=== PATIENT | female | born 1980 | race African-American/Black ===

== ENCOUNTER → 2017-04-09 | Outpatient (CLI) | payer MEDICARE ==
[2017-04-09 11:40] LABS: HEMATOCRIT 35.3 % (36.0-47.0); HEMOGLOBIN 12.1 g/dL (12.0-15.5); MEAN CORPUSCULAR HEMOGLOBIN 27.2 pg (27.0-33.4); MEAN CORPUSCULAR HGB CONC 34.4 g/dL (32.0-36.0); MEAN CORPUSCULAR VOLUME 79 fl (80-97); RED BLOOD COUNT 4.45 10^6/uL (3.72-5.28); RED CELL DISTRIBUTION WIDTH 17.9 % (11.5-14.0)
[2017-04-09 11:40] LABS: APPEARANCE,URINE CLEAR; BILIRUBIN,URINE NEGATIVE (NEGATIVE); GLUCOSE, URINE NEGATIVE (NEGATIVE); KETONES,URINE NEGATIVE (NEGATIVE); LEUKOCYTE ESTERASE,URINE NEGATIVE (NEGATIVE); NITRITE,URINE NEGATIVE (NEGATIVE); PROTEIN,URINE NEGATIVE (NEGATIVE); URINE SPECIFIC GRAVITY 1.015; UROBILINOGEN,URINE NEGATIVE mg/dL (<2.0)
[2017-04-09 12:06] LABS: ALANINE AMINOTRANSFERASE 25 U/L (9-52); ALBUMIN 4.5 g/dL (3.5-5.0); ALKALINE PHOSPHATASE 60 U/L (38-126); ANION GAP 12 (5-19); ASPARTATE AMINO TRANSFERASE 18 U/L (14-36); BILIRUBIN,DIRECT 0.3 mg/dL (0.0-0.4); BILIRUBIN,TOTAL 0.4 mg/dL (0.2-1.3); BLOOD UREA NITROGEN 10 mg/dL (7-20); CALCIUM 9.5 mg/dL (8.4-10.2); CARBON DIOXIDE 25 mmol/L (22-30); CHLORIDE 104 mmol/L (98-107); CREATINE KINASE 99 U/L (30-135); CREATININE RESULT 0.63 mg/dL (0.52-1.25); GLUCOSE 107 mg/dL (75-110); POTASSIUM 4.7 mmol/L (3.6-5.0); SODIUM 140.5 mmol/L (137-145); TOTAL PROTEIN 7.8 g/dL (6.3-8.2)
[2017-04-09 12:09] LABS: BAND NEUTROPHILS % (MANUAL) 2 % (3-5); BASOPHILS % (MANUAL) 0 % (0-2); EOSINOPHILS % (MANUAL) 0 % (0-6); LYMPHOCYTES % (MANUAL) 3 % (13-45); TOTAL CELLS COUNTED 100
[2017-04-09 12:13] LABS: C-REACTIVE PROTEIN < 5.0 mg/L (<10.0)
[2017-04-09 12:15] LABS: ANISOCYTOSIS 1+; HYPOCHROMASIA 1+
[2017-04-09 12:18] LABS: PLATELET CLUMPS PRESENT; TOXIC GRANULATION SLIGHT
[2017-04-09 12:22] LABS: ERYTHROCYTE SEDIMENTATION RATE 18 mm/hr (0-20)
[2017-04-10 06:39] LABS: COMPLEMENT C4 20 mg/dL (14-44)
[2017-04-10 07:26] LABS: COMPLEMENT C3 108 mg/dL (82-167)
[2017-04-10 08:23] LABS: COMPLEMENT TOTAL (CH50) >60 U/mL (42-60)
[2017-04-10 13:56] LABS: DNA DOUBLE STRAND ANTIBODY 7 IU/mL (0-9)
== END ==
LOC: OD 09:46
PROVIDERS: ATTEND Internal Medicine Rheumatology
DX: M32.10 Systemic lupus erythematosus, organ or system involvement unspecified (principal); M06.4 Inflammatory polyarthropathy; M25.50 Pain in unspecified joint; M79.1 Myalgia; G89.4 Chronic pain syndrome; Z79.899 Other long term (current) drug therapy
CPT/HCPCS: 36415; 80053; 81001; 82550; 85025; 85652; 86140; 86160; 86162; 86225

== ENCOUNTER 2018-02-16 17:14 | Emergency (ER) | payer MEDICARE ==
[2018-02-16] MEDS ORDERED: ONDANSETRON 4 MG TAB.RAPDIS PO ONE (18:48)
--- NOTE | 2018-02-16 18:48 | ER Document Report ---
ED Medical Screen (RME) - General Chief Complaint: Nausea/Vomiting/Diarrhea Stated Complaint: BACK/LEG/ABDOMINAL PAIN, VOMITING Time Seen by Provider: 02/16/18 18:36 Notes: RAPID MEDICAL EVALUATION DISCLOSURE I have seen this patient as part of a Rapid Medical Evaluation and, if applicable, placed any initially appropriate orders. The patient will be seen and fully evaluated, including a full history and physical exam, by a provider ( in Main ED or Fast Track) when a room becomes available. 37-year-old female here with multiple complaints: 1) complains of "all over chest pain" nausea vomiting diarrhea abdominal cramping that started early this morning. The chest pain is not worse with exertion or anything in particular. He does not have any shortness of breath diaphoresis lightheadedness. She has 2 known sick contacts with similar vomiting and diarrhea illnesses. Has not tried anything for the symptoms. 2) complains of chronic low back pain ongoing for many months now. Has the symptoms daily. Progressively worsening. She is down her right leg. Denies numbness tingling weakness incontinence retention. Has not tried anything for these symptoms. EXAM CTAB RRR Mild lower quadrant TTP Minimal bilateral paraspinal lumbar muscle TTP TRAVEL OUTSIDE OF THE [place] IN LAST 30 DAYS: No - Related Data Allergies/Adverse Reactions: hydroxychloroquine sulfate [From Plaquenil] Allergy (Unknown, Verified 02/16/18 18:25) tramadol [Tramadol] Allergy (Unknown, Verified 02/16/18 18:25) Past Medical History - Social History Chew tobacco use (# tins/day): No Frequency of alcohol use: Occasional Drug Abuse: None Renal/ Medical History: Denies: Hx Peritoneal Dialysis Past Surgical History: Reports: Hx Gynecologic Surgery - Immunizations Hx Diphtheria, Pertussis, Tetanus Vaccination: Yes Physical Exam - Vital signs Vitals: Temp Pulse Resp BP Pulse Ox 99.0 F 99 16 111/61 96 02/16/18 17:32 02/16/18 17:32 02/16/18 17:32 02/16/18 17:32 02/16/18 17:32 Course - Vital Signs Vital signs: Temp Pulse Resp BP Pulse Ox 99.0 F 99 16 111/61 96 02/16/18 17:32 02/16/18 17:32 02/16/18 17:32 02/16/18 17:32 02/16/18 17:32 Doctor's Discharge - Discharge Referrals: ML RODRIGUES MD [Primary Care Provider] - Follow up as needed
[2018-02-16 19:30] LABS: HEMOGLOBIN 12.4 g/dL (12.0-15.5); MEAN CORPUSCULAR HEMOGLOBIN 27.5 pg (27.0-33.4); MEAN CORPUSCULAR HGB CONC 34.4 g/dL (32.0-36.0); MEAN CORPUSCULAR VOLUME 80 fl (80-97); PLATELET COUNT 398 10^3/uL (150-450); RED BLOOD COUNT 4.51 10^6/uL (3.72-5.28); RED CELL DISTRIBUTION WIDTH 14.7 % (11.5-14.0); WHITE BLOOD COUNT 7.1 10^3/uL (4.0-10.5)
[2018-02-16 19:39] LABS: APPEARANCE,URINE CLEAR; BILIRUBIN,URINE NEGATIVE (NEGATIVE); COLOR,URINE AMBER; GLUCOSE, URINE NEGATIVE (NEGATIVE); KETONES,URINE TRACE mg/dL (NEGATIVE); LEUKOCYTE ESTERASE,URINE NEGATIVE (NEGATIVE); NITRITE,URINE NEGATIVE (NEGATIVE); PROTEIN,URINE NEGATIVE (NEGATIVE); URINE SPECIFIC GRAVITY 1.024
[2018-02-16 19:47] LABS: ALANINE AMINOTRANSFERASE 16 U/L (9-52); ALBUMIN 4.4 g/dL (3.5-5.0); ALKALINE PHOSPHATASE 66 U/L (38-126); ANION GAP 10 (5-19); ASPARTATE AMINO TRANSFERASE 22 U/L (14-36); BILIRUBIN,DIRECT 0.3 mg/dL (0.0-0.4); BILIRUBIN,TOTAL 0.5 mg/dL (0.2-1.3); BLOOD UREA NITROGEN 7 mg/dL (7-20); CALCIUM 9.6 mg/dL (8.4-10.2); CARBON DIOXIDE 27 mmol/L (22-30); CHLORIDE 104 mmol/L (98-107); GLUCOSE 74 mg/dL (75-110); LIPASE 50.9 U/L (23-300); POTASSIUM 4.9 mmol/L (3.6-5.0); SODIUM 140.8 mmol/L (137-145); TOTAL PROTEIN 8.2 g/dL (6.3-8.2)
[2018-02-16 19:49] LABS: ABSOLUTE LYMPHOCYTES# (MANUAL) 0.4 10^3/uL (0.5-4.7); ABSOLUTE MONOCYTES # (MANUAL) 0.2 10^3/uL (0.1-1.4); ABSOLUTE NEUTROPHILS# (MANUAL) 6.5 10^3/uL (1.7-8.2); BASOPHILS % (MANUAL) 0 % (0-2); EOSINOPHILS % (MANUAL) 1 % (0-6); LYMPHOCYTES % (MANUAL) 5 % (13-45); MONOCYTES % (MANUAL) 3 % (3-13); SEGMENTED NEUTROPHILS % (MAN) 91 % (42-78); TOTAL CELLS COUNTED 100
[2018-02-16 19:51] LABS: ANISOCYTOSIS SLIGHT; PLATELET COMMENT ADEQUATE; TOXIC GRANULATION SLIGHT
[2018-02-16] MEDS ORDERED: OXYCODONE-ACETAMINOPHEN 5-325 MG TABLET PO ONE (20:09)
--- NOTE | 2018-02-16 20:11 | ER Document Report ---
ED General - General Chief Complaint: Nausea/Vomiting/Diarrhea Stated Complaint: BACK/LEG/ABDOMINAL PAIN, VOMITING Time Seen by Provider: 02/16/18 18:36 Notes: Patient is a 37-year-old female with a history of lupus that comes to the emergency department for chief complaint of vomiting, diarrhea, pain in her mid to lower abdomen, pain in her back, and a few instances of sharp pain in her chest. She has vomited approximately 6 times, had 4 episodes of loose stools. She has had multiple sick contacts with similar symptoms. She denies shortness of breath, fever, dysuria. She states she thinks she saw a few flecks of blood in her vomit after she had vomited multiple times already. No hematochezia. Not on a blood thinner. She is on Imuran and prednisone for lupus. TRAVEL OUTSIDE OF THE [place] IN LAST 30 DAYS: No - Related Data Allergies/Adverse Reactions: hydroxychloroquine sulfate [From Plaquenil] Allergy (Unknown, Verified 02/16/18 18:25) tramadol [Tramadol] Allergy (Unknown, Verified 02/16/18 18:25) Past Medical History - Social History Smoking Status: Current Every Day Smoker Chew tobacco use (# tins/day): No Frequency of alcohol use: Occasional Drug Abuse: None Family History: Reviewed & Not Pertinent Patient has suicidal ideation: No Patient has homicidal ideation: No Renal/ Medical History: Denies: Hx Peritoneal Dialysis Past Surgical History: Reports: Hx Gynecologic Surgery - Immunizations Hx Diphtheria, Pertussis, Tetanus Vaccination: Yes Review of Systems - Review of Systems Constitutional: No symptoms reported EENT: No symptoms reported Cardiovascular: See HPI Respiratory: No symptoms reported Gastrointestinal: See HPI Genitourinary: No symptoms reported Female Genitourinary: No symptoms reported Musculoskeletal: No symptoms reported Skin: No symptoms reported Hematologic/Lymphatic: No symptoms reported Neurological/Psychological: No symptoms reported Physical Exam - Vital signs Vitals: Temp Pulse Resp BP Pulse Ox 99.0 F 99 16 111/61 96 02/16/18 17:32 02/16/18 17:32 02/16/18 17:32 02/16/18 17:32 02/16/18 17:32 - Notes Notes: GENERAL: Alert, interacts well. No acute distress. HEAD: Normocephalic, atraumatic. EYES: Pupils equal, round, and reactive to light. Extraocular movements intact. ENT: Oral mucosa moist, tongue midline. Unremarkable oral pharyngeal exam. NECK: Full range of motion. Supple. Trachea midline. LUNGS: Clear to auscultation bilaterally, no wheezes, rales, or rhonchi. No respiratory distress. HEART: Regular rate and rhythm. No murmur ABDOMEN: Soft, non-tender. Non-distended. Bowel sounds present in all 4 quadrants. EXTREMITIES: Moves all 4 extremities spontaneously. No edema, normal radial and dorsalis pedis pulses bilaterally. No cyanosis. BACK: no cervical, thoracic, lumbar midline tenderness. No saddle anesthesia, normal distal neurovascular exam. NEUROLOGICAL: Alert and oriented x3. Normal speech. [cranial nerves II through XII grossly intact]. PSYCH: Normal affect, normal mood. SKIN: Warm, dry, normal turgor. No rashes or lesions noted. Course - Re-evaluation Re-evalutation: Vague atypical chest pain reported, EKG unremarkable, chest x-ray unremarkable. No current chest pain. Very low suspicion of ACS. No tachycardia or shortness of breath. Low suspicion of PE. Patient does not smoke, she is not on oral contraceptives. Patient's abdomen is soft and benign. Patient is smiling and well-appearing, states she feels good now. Patient was given nausea medication, afterwards she tolerated p.o. without any difficulty. CBC, chemistry, lipase unremarkable. Urinalysis unremarkable. With her vomiting and diarrhea, evaluation, workup I suspect this is viral. Discussed home treatment, provided with work release, discussed follow-up and return precautions. Patient states satisfaction and agreement. - Vital Signs Vital signs: Temp Pulse Resp BP Pulse Ox 98.5 F 85 20 118/70 100 02/16/18 21:41 02/16/18 21:41 02/16/18 21:41 02/16/18 21:41 02/16/18 21:41 - Laboratory Result Diagrams: 02/16/18 19:16 02/16/18 19:16 Laboratory results interpreted by me: 02/16/18 02/16/18 02/16/18 19:16 19:16 19:23 RDW 14.7 H Seg Neuts % (Manual) 91 H Lymphocytes % (Manual) 5 L Abs Lymphs (Manual) 0.4 L Glucose 74 L Urine Ketones TRACE H Urine Urobilinogen 4.0 H Discharge - Discharge Clinical Impression: Nausea vomiting and diarrhea Chest pain Qualifiers: Chest pain type: unspecified Qualified Code(s): R07.9 - Chest pain, unspecified Abdominal pain Qualifiers: Abdominal location: generalized Qualified Code(s): R10.84 - Generalized abdominal pain Condition: Stable Disposition: HOME, SELF-CARE Additional Instructions: Your workup today shows slightly low blood sugar but otherwise does not show any concerning abnormalities. This is most likely viral, this should resolve with time, rest, drink plenty of fluids, take nausea medicine as prescribed, only take pain medication if needed , start with bland diet and slowly progress. Follow-up with primary care. Return for any concerning symptoms including uncontrolled vomiting, spiking fever, passing out, severe pain in your chest or abdomen, or any other concerning or worsening symptoms. Prescriptions: Ondansetron [Zofran Odt 4 mg Tablet] 1 - 2 tab PO Q4H PRN #15 tab.rapdis PRN Reason: For Nausea/Vomiting Forms: Return to Work Referrals: ML RODRIGUES MD [Primary Care Provider] - Follow up as needed
--- NOTE | 2018-02-16 21:02 | RADIOLOGY REPORT (SQ) ---
EXAM DESCRIPTION: CHEST SINGLE VIEW COMPLETED DATE/TIME: 02/16/2018 8:32 pm REASON FOR STUDY: chest pain COMPARISON: 09/09/2011 EXAM PARAMETERS: NUMBER OF VIEWS: One view. TECHNIQUE: Single frontal radiographic view of the chest acquired. RADIATION DOSE: NA LIMITATIONS: None. FINDINGS: LUNGS AND PLEURA: No opacities, masses or pneumothorax. No pleural effusion. MEDIASTINUM AND HILAR STRUCTURES: No masses. Contour normal. HEART AND VASCULAR STRUCTURES: Heart normal in size. Normal vasculature. BONES: No acute findings. HARDWARE: None in the chest. OTHER: No other significant finding. IMPRESSION: NO ACUTE RADIOGRAPHIC FINDING IN THE CHEST. TECHNICAL DOCUMENTATION: JOB ID: [id number] [employer]- All Rights Reserved Reading location - IP/workstation name: [email or web address]
[2018-02-16] MEDS ORDERED: ONDANSETRON ODT 4 MG TAB (6 TAB/ER DISP) PO PRN (21:03)
[2018-02-16] MEDS ORDERED: HYDROCODONE/ACETAMINOPHEN 5-325 MG (6 TAB/ER DISP) PO PRN (21:03)
[2018-02-16 21:42] VITALS: BP 118/70
--- NOTE | 2018-02-17 07:45 | EKG REPORT ---
SEVERITY:- NORMAL ECG - SINUS RHYTHM : Confirmed by: Yimi Jackson MD 17-Feb-2018 07:44:42
== END 2018-02-16 21:39 | disposition home or self-care (01) ==
LOC: ER 17:14
DX: R11.2 Nausea with vomiting, unspecified (principal); R19.7 Diarrhea, unspecified; R10.84 Generalized abdominal pain; M54.9 Dorsalgia, unspecified; R07.9 Chest pain, unspecified; Z79.899 Other long term (current) drug therapy; Z79.52 Long term (current) use of systemic steroids; Z88.8 Allergy status to other drugs, medicaments and biological substances; Z88.5 Allergy status to narcotic agent; F17.200 Nicotine dependence, unspecified, uncomplicated
CPT/HCPCS: 93005; 99284; 36415; 83690; 85025; 81025; 80053; 81001; 71045; 93010; A9270 ×4; S0119

== ENCOUNTER 2018-06-05 00:09 | Emergency (ER) | payer MEDICARE ==
[2018-06-05] MEDS ORDERED: NORMAL SALINE 1000 ML 1,000 ML IV ONE (01:47)
[2018-06-05 02:14] LABS: ABSOLUTE BASOPHILS # (AUTO) 0.1 10^3/uL (0.0-0.2); ABSOLUTE LYMPHOCYTES (AUTO) 0.5 10^3/uL (0.5-4.7); ABSOLUTE MONOCYTES (AUTO) 0.3 10^3/uL (0.1-1.4); ABSOLUTE NEUT (AUTO) 5.2 10^3/uL (1.7-8.2); BASOPHILS % (AUTO) 0.9 % (0-2); EOSINOPHILS % (AUTO) 0.3 % (0-6); HEMATOCRIT 34.4 % (36.0-47.0); HEMOGLOBIN 11.7 g/dL (12.0-15.5); LYMPHOCYTES % (AUTO) 8.5 % (13-45); MEAN CORPUSCULAR HEMOGLOBIN 27.8 pg (27.0-33.4); MEAN CORPUSCULAR HGB CONC 34.1 g/dL (32.0-36.0); MEAN CORPUSCULAR VOLUME 82 fl (80-97); MONOCYTES % (AUTO) 5.5 % (3-13); PLATELET COUNT 310 10^3/uL (150-450); RED BLOOD COUNT 4.22 10^6/uL (3.72-5.28); RED CELL DISTRIBUTION WIDTH 15.8 % (11.5-14.0); SEGMENTED NEUTROPHILS % (AUTO) 84.8 % (42-78); TOTAL CELLS COUNTED % (AUTO) 100 %; WHITE BLOOD COUNT 6.1 10^3/uL (4.0-10.5)
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
[2018-06-05 02:35] LABS: ANION GAP 6 (5-19); BLOOD UREA NITROGEN 6 mg/dL (7-20); CALCIUM 9.5 mg/dL (8.4-10.2); CARBON DIOXIDE 29 mmol/L (22-30); CHLORIDE 104 mmol/L (98-107); GLUCOSE 95 mg/dL (75-110); POTASSIUM 4.5 mmol/L (3.6-5.0); SODIUM 139.4 mmol/L (137-145)
[2018-06-05] MEDS ORDERED: ACETAMINOPHEN 325 MG TABLET PO ONE (02:40)
[2018-06-05 03:26] VITALS: BP 120/87
== END 2018-06-05 03:27 | disposition home or self-care (01) ==
LOC: ER 00:09
DX: R51 Headache (principal); M79.10 Myalgia, unspecified site; J02.9 Acute pharyngitis, unspecified; M54.2 Cervicalgia; R50.9 Fever, unspecified; Y04.0XXA Assault by unarmed brawl or fight, initial encounter; F17.200 Nicotine dependence, unspecified, uncomplicated
CPT/HCPCS: 99284; 96360; 36415; 85025; 80048; 70486; 72125; A9270; J7030

== ENCOUNTER 2018-09-01 09:20 | Emergency (ER) | payer MEDICARE ==
--- NOTE | 2018-09-01 09:42 | ER Document Report ---
HPI - HPI Patient complains to provider of: dental pain Time Seen by Provider: 09/01/18 09:35 Onset: Other Onset/Duration: Persistent Quality of pain: Achy Severity: Severe Pain Level: 5 Context: Patient presents emergency department with complaints of abscess on both sides and 2 teeth with holes. Patient reports she has had the symptoms for over a week with dental issues in the past. She reports she has had a fever of 101 with some nausea and vomiting due to the pain. She denies drainage. Patient reports she does not have a dentist so she came here. Associated Symptoms: Fever Exacerbated by: Denies Relieved by: Denies Similar symptoms previously: Yes Recently seen / treated by doctor: No - REPRODUCTIVE Reproductive: DENIES: : Past Medical History - General Information source: Patient - Social History Smoking Status: Current Every Day Smoker Cigarette use (# per day): Yes Frequency of alcohol use: Occasional Drug Abuse: None Family History: Reviewed & Not Pertinent Patient has suicidal ideation: No Patient has homicidal ideation: No - Medical History Medical History: Other - anemia lupus, Renal/ Medical History: Reports: Hx Pelvic Inflammatory Disease. Denies: Hx Peritoneal Dialysis GI Medical History: Reports: Hx Colonoscopy Musculoskeletal Medical History: Reports Hx Fibromyalgia Past Surgical History: Reports: Hx Gynecologic Surgery - Immunizations Hx Diphtheria, Pertussis, Tetanus Vaccination: Yes Vertical Provider Document - CONSTITUTIONAL Agree With Documented VS: Yes Exam Limitations: No Limitations General Appearance: WD/WN, No Apparent Distress - nontoxic looking - INFECTION CONTROL TRAVEL OUTSIDE OF THE [place] IN LAST 30 DAYS: No - HEENT HEENT: Atraumatic, Normocephalic. negative: Pharyngeal Exudate, Pharyngeal Erythema, Tympanic Membrane Red, Tympanic Membrane Bulging Mouth Diagram: 1 - soft swelling, no obvious abscess, no erythema, no pustule 2 - opens mouth wide clear voice no ludwigs. soft swelling, no obvious abscess, no erythema, no pustule - NECK Neck: Normal Inspection, Supple. negative: Lymphadenopathy-Left, Lymphadenopathy-Right - RESPIRATORY Respiratory: Breath Sounds Normal, No Respiratory Distress - CARDIOVASCULAR Cardiovascular: Regular Rate - MUSCULOSKELETAL/EXTREMETIES Musculoskeletal/Extremeties: MAEW FROM - NEURO Level of Consciousness: Awake, Alert, Appropriate Motor/Sensory: No Motor Deficit - DERM Integumentary: Warm, Dry Course - Re-evaluation Re-evalutation: 09/01/18 10:13 Patient is able to open her mouth wide without problems. No ludwigs. Patient requesting antibiotics. She was instructed on Pen-Vee K Patient reports she is taking that in the past without problems. . She was instructed that antibiotics would not fix her problem that she had to follow-up with the dentist. Patient was instructed on the importance of follow-up with dental. Dictation of this chart was performed using voice recognition software; therefore, there may be some unintended grammatical errors. Discharge - Discharge Clinical Impression: Pain, dental Condition: Stable Disposition: HOME, SELF-CARE Instructions: Acetaminophen, Clindamycin ([facility]), Penicillin V K ([facility]), Toothache ([facility]) Additional Instructions: *You have been evaluated for dental pain *take tylenol as indicated for pain *Take medications as prescribed *Follow up with dentist within one week *Return to ED for worsening condition, changes, needs Prescriptions: Penicillin V Potassium [Penicillin Vk 500 mg Tablet] 500 mg PO BID #20 tablet Referrals: ML RODRIGUES MD [ACTIVE STAFF] - Follow up in 1 week
[2018-09-01 09:47] VITALS: BP 108/83
== END 2018-09-01 09:54 | disposition home or self-care (01) ==
LOC: ER 09:20
DX: K08.89 Other specified disorders of teeth and supporting structures (principal); M79.89 Other specified soft tissue disorders; R50.9 Fever, unspecified; R11.2 Nausea with vomiting, unspecified; F17.210 Nicotine dependence, cigarettes, uncomplicated
CPT/HCPCS: 99282